=== PATIENT | male | born 1955 | race Caucasian/White ===

== ENCOUNTER 2017-09-14 07:33 | Emergency (ER) | payer BC ==
[~2017-09-14] VITALS: Ht 167.6 cm; Wt 81.3 kg
[~2017-09-14 07:33] MED LIST: AMOXICILLIN500 MG PO; CLINDAMYCIN HC300 MG PO; IBUPROFEN600 MG PO
[2017-09-14 08:22] LABS: HEMATOCRIT 43.6 % (38.0-50.0); MCH 30.8 PG (29.0-34.0); MCHC 34.4 G/DL (30.0-36.0); MCV 89.5 FL (86-99); PLATELET COUNT 207 K/uL (156-360); RBC DIS.WIDTH-CV 13.2 % (11.8-14.6); RBC DIS.WIDTH-SD 43.4 % (39-53); RED BLOOD COUNT 4.87 M/uL (4.00-5.50); WHITE BLOOD COUNT 6.5 K/uL (4.1-10.2)
[2017-09-14 08:31] LABS: CHLORIDE 106 mEq/L (99-109); POTASSIUM 4.1 mEq/L (3.7-5.4); SODIUM 140 mEq/L (136-147)
[2017-09-14 08:32] LABS: GLUCOSE 124 mg/dL (70-99)
[2017-09-14 08:36] LABS: CREATININE 1.1 mg/dL (0.6-1.3); GFR ESTIMATE (CALCULATED) > 59 mL/min/ (58.99-99999)
[2017-09-14 08:37] LABS: UREA NITROGEN (BUN) 15 mg/dL (9-23)
[2017-09-14 08:43] LABS: TROP-I INTERPRETATION NEGATIVE; TROPONIN-I < 0.01 ng/mL (0.0-0.30)
[2017-09-14 11:11] LABS: TOTAL PROTEIN 7.6 g/dL (6.4-8.3)
[2017-09-14 11:13] LABS: TOTAL BILIRUBIN 0.4 mg/dL (0.0-1.0)
[2017-09-14 11:14] LABS: ALKALINE PHOSPHATASE 64 IU/L (3-129)
[2017-09-14 11:16] LABS: AST (GOT) 20 IU/L (2-34)
[2017-09-14 11:17] LABS: ALT (GPT) 19 IU/L (3-49); DIRECT BILIRUBIN 0.2 mg/dL (0.0-0.3)
[2017-09-14 11:18] LABS: LIPASE 42 U/L (1.0-51.0)
[2017-09-14 11:28] LABS: TROP-I INTERPRETATION NEGATIVE; TROPONIN-I < 0.01 ng/mL (0.0-0.30)
[2017-09-14 14:29] VITALS: BP 118/73
== END 2017-09-14 14:29 | disposition home or self-care (01) ==
LOC: EME 07:33
PROVIDERS: Nurse Practitioner Family
DX: R07.9 Chest pain, unspecified (principal); R59.0 Localized enlarged lymph nodes; K80.20 Calculus of gallbladder without cholecystitis without obstruction; N40.0 Benign prostatic hyperplasia without lower urinary tract symptoms; Z88.2 Allergy status to sulfonamides
CPT/HCPCS: 71046; 76705; 80048; 80076; 83690; 84484; 85027; 93005; J7030